=== PATIENT | female | born 1965 | race Caucasian/White ===

== ENCOUNTER 2018-08-13 16:41 | Emergency (ER) | payer MEDICAID ==
[~2018-08-13] VITALS: Ht 154.9 cm; Wt 78.9 kg
[2018-08-13 16:51] VITALS: BP 131/74
[2018-08-13] MEDS ORDERED: NACL 0.9% 1,000 ML IV SCH (16:59)
[2018-08-13] MEDS ORDERED: KETOROLAC 30 MG/ML VIAL IVP ONE (17:10)
[2018-08-13 17:32] LABS: APPEARANCE,URINE CLEAR (CLEAR); BILIRUBIN,URINE NEGATIVE (NEGATIVE); BLOOD, URINE NEGATIVE (NEGATIVE); COLOR,URINE YELLOW (YELLOW); LEUKOCYTE ESTERASE ,URINE NEGATIVE (NEGATIVE); NITRITE, URINE NEGATIVE (NEGATIVE); UGLUCOSE NEGATIVE (NEGATIVE)
[2018-08-13 17:36] LABS: BASOPHILS % (AUTO) 0.6 % (0.0-2.0); EOSINOPHILS # (AUTO) 0.1 K/uL (0-0.4); EOSINOPHILS % (AUTO) 1.4 % (0.0-4.0); HEMATOCRIT 39.3 % (36-48); HEMOGLOBIN 12.6 g/dL (12.0-16.0); LYMPHOCYTES # (AUTO) 2.5 K/uL (2.5-16.5); LYMPHOCYTES % (AUTO) 32.7 % (20.5-51.1); MEAN CORPUSCULAR HEMOGLOBIN 28 pg (27-31); MEAN CORPUSCULAR HGB CONC 32 g/dL (33-37); MEAN CORPUSCULAR VOLUME 88.6 fL (80-94); MONOCYTES # (AUTO) 0.8 K/uL (0.8-1.0); MONOCYTES % (AUTO) 10.1 % (1.7-9.3); NEUTROPHILS # (AUTO) 4.2 K/uL (1.8-7.7); NEUTROPHILS % (AUTO) 55.2 % (42.2-75.2); PLATELET COUNT (AUTO) 269 K/uL (140-450); RED BLOOD CELL COUNT(AUTO) 4.44 MIL/uL (4.20-5.40); RED CELL DISTRIBUTION WIDTH 14.3 % (11.6-13.7); WHITE BLOOD COUNT (AUTO) 7.5 K/uL (4.8-10.8)
[2018-08-13 17:50] LABS: ANION GAP 10.1 (8-16); CARBON DIOXIDE 28.5 mmol/L (21-32); CREATININE 0.9 mg/dL (0.6-1.3); POTASSIUM 3.6 mmol/L (3.5-5.1)
[2018-08-13 17:57] LABS: ALBUMIN 4.1 g/dL (3.4-5.0); TOTAL BILIRUBIN 0.2 mg/dL (0.0-1.0)
[2018-08-13 19:07] VITALS: BP 125/72
== END 2018-08-13 19:09 | disposition home or self-care (01) ==
LOC: MED 16:41
DX: R10.9 Unspecified abdominal pain (principal); M54.9 Dorsalgia, unspecified; G43.909 Migraine, unspecified, not intractable, without status migrainosus; Z88.2 Allergy status to sulfonamides
CPT/HCPCS: 36415; 74176; 80053; 81003; 81025; 83605; 83690; 84703; 85025; 87040; 87086; 96374; 99285; J1885

== ENCOUNTER 2023-04-21 20:34 | Emergency (ER) | payer MEDICAID ==
[~2023-04-21] VITALS: Ht 152.4 cm; Wt 72.6 kg
[2023-04-21 20:40] VITALS: BP 130/77
--- NOTE | 2023-04-21 20:42 | NUR ---
TO ABDIRASHID , AMBULATORY
--- NOTE | 2023-04-21 21:07 | NUR ---
Patient being evaluated by EREN at bedside.
[2023-04-21] MEDS ORDERED: IBUP-2213 PO (21:14)
[2023-04-21] MEDS ORDERED: AMOX1TAB8 PO (21:14)
[2023-04-21] MEDS ORDERED: KETOROLAC 30 MG/ML VIAL IM ONE (21:15)
[2023-04-21 22:09] VITALS: BP 130/77
--- NOTE | 2023-04-21 22:29 | NUR ---
Patient discharged with v/s stable. Written and verbal after care instructions given and explained. Patient alert, oriented and verbalized understanding of instructions. Ambulatory with steady gait. All questions addressed prior to discharge. ID band removed. Patient advised to follow up with PMD. Rx of amoxicilin and cellulitis given. Patient educated on indication of medication including possible reaction and side effects. Opportunity to ask questions provided and answered.
== END 2023-04-21 22:29 | disposition home or self-care (01) ==
LOC: MED 20:34
DX: S41.131A Puncture wound without foreign body of right upper arm, initial encounter (principal); L03.113 Cellulitis of right upper limb; W55.01XA Bitten by cat, initial encounter; Y93.89 Activity, other specified; Y92.89 Other specified places as the place of occurrence of the external cause; Y99.8 Other external cause status
CPT/HCPCS: 96372; 99283; J1885

== ENCOUNTER 2023-07-28 22:04 | Emergency (ER) | payer MEDICAID ==
[~2023-07-28 22:04] MED LIST: AMOX1TAB8 PO; IBUP-2213 PO
== END 2023-07-28 22:18 | disposition left against medical advice (07) ==
LOC: MED 22:04
DX: M79.643 Pain in unspecified hand (principal); Z53.21 Procedure and treatment not carried out due to patient leaving prior to being seen by health care provider

== ENCOUNTER 2023-11-02 11:26 | Emergency (ER) | payer MEDICAID ==
[~2023-11-02] VITALS: Ht 157.5 cm; Wt 81.6 kg
[2023-11-02 11:58] VITALS: BP 147/88; PULSE 74; RESP 18; TEMP 97.1; O2SAT 98
[2023-11-02 12:30] LABS: FLU A ANTIGEN negative (NEGATIVE); FLU B ANTIGEN NEGATIVE (NEGATIVE)
[2023-11-02] MEDS ORDERED: BENZ200C4 PO (12:53)
[2023-11-02 12:59] LABS: BILIRUBIN,URINE NEGATIVE (NEGATIVE); BLOOD, URINE NEGATIVE (NEGATIVE); COLOR,URINE YELLOW (YELLOW); LEUKOCYTE ESTERASE ,URINE 3+ (NEGATIVE); NITRITE, URINE NEGATIVE (NEGATIVE); PROTEIN,URINE NEGATIVE (NEGATIVE); UGLUCOSE NEGATIVE (NEGATIVE); UROBILINOGEN,URINE 0.2 EU/dL (0.2 - 1)
[2023-11-02 13:00] LABS: APPEARANCE,URINE SLIGHTLY CLOUDY (CLEAR)
[2023-11-02 13:07] LABS: BACTERIA,URINE FEW /HPF (None Seen); RBC,URINE 0-5 /HPF (0-5); SQUAMOUS EPITHELIAL CELL,UR 4-10 (MOD) /LPF (0-3 (FEW))
[2023-11-02] MEDS ORDERED: CEPH-588 PO (13:27)
== END 2023-11-02 13:05 | disposition home or self-care (01) ==
LOC: MED 11:26
DX: J06.9 Acute upper respiratory infection, unspecified (principal); Z20.822 Contact with and (suspected) exposure to COVID-19; N39.0 Urinary tract infection, site not specified; R03.0 Elevated blood-pressure reading, without diagnosis of hypertension; Z79.899 Other long term (current) drug therapy; Z88.2 Allergy status to sulfonamides
CPT/HCPCS: 81001; 81025; 87086; 99283